=== PATIENT | female | born 2000 | race Caucasian/White ===

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

== ENCOUNTER 2020-07-03 23:50 | Inpatient (IN) | payer MEDICAID, SELFPAY ==
[2020-07-04] VITALS (18 sets, daily range): BP systolic 106–139; BP diastolic 67–113; PULSE 73–99; RESP 16–18; TEMP 36.6–36.9; O2SAT 96–100; BMI 29.9
[2020-07-04 01:13] LABS: Basophils % 0.2 %; Eosinophils % 0.2 %; Hematocrit 32.8 % (37.0-47.0); Hemoglobin 10.7 g/dL (11.5-15.3); Lymphocytes # 1.5 10^3/uL (1.5-6.5); Mean Corpuscular HGB Conc 32.6 g/dL (30.0-36.0); Mean Corpuscular Hemoglobin 28.5 pg (28.0-34.0); Mean Corpuscular Volume 87.2 fL (81-99); Mean Platelet Volume 10.1 fL (7.4-10.4); Monocytes # 0.6 10^3/uL (0.2-0.9); Monocytes % 3.3 %; Neutrophils # 14.69 10^3/uL (1.8-8.0); Neutrophils % 86.8 %; Nucleated Red Blood Cells % 0 %; Platelet Count 391 10^3/cmm (130-400); Red Blood Count 3.76 10^6/uL (4.1-5.3); Red Cell Distribution Width 13.8 % (12.1-15.1); White Blood Count 16.9 10^3/uL (4.5-13.0)
[2020-07-04 01:22] LABS: Rubella IgG 125.4 IU/mL (0.0-10.0)
[2020-07-04 01:23] LABS: Hepatitis B Surface Antigen Non-Reactive (Nonreactive); Hepatitis C Virus Antibody Non-Reactive (Nonreactive)
[2020-07-04 01:49] LABS: HIV 1 & 2 Antibody Non-Reactive (Non-Reactiv); HIV 1 & 2 Antigen Non-Reactive (Non-Reactiv); Rapid Plasma Reagin Syphilis Nonreactive (Nonreactive)
[2020-07-04] MEDS: benzocaine-menthol 78 gm Canister 1 SPRAY TOPICAL (02:20)
[2020-07-04] MEDS: HYDROcodone-acetaminophen 5-325 mg Tablet 1 TAB PO (02:20)
[2020-07-04 03:05] LABS: Urine Color Yellow (Yellow)
[2020-07-04 03:06] LABS: Add Urine Microscopic? YES; Amphetamines Screen Urine Positive (Negative); Barbiturates Screen Urine Negative (Negative); Benzodiazepines Screen Urine Negative (Negative); Bilirubin Urine Neg (Negative); Blood Urine Neg (Negative); Cocaine Screen Urine Negative (Negative); Glucose Urine UA Norm (Normal); Ketones Urine 3+ (Negative); Leukocyte Esterase Urine Negative (Negative); Nitrate Urine Positive (Negative); Opiate Screen Urine Negative (Negative); PCP Screen Urine Negative (Negative); Protein Urine Trace (Negative); Specific Gravity, Urine 1.015 (1.005-1.030); THC Screen Urine Positive (Negative); Urine Appearance Cloudy (CLEAR); Urobilinogen Urine 4 mg/dL (Negative)
[2020-07-04 03:07] LABS: Add Urine Culture? Yes; Amorphous Sediment Urine AMORPHOUS URATES /hpf; Bacteria Urine 3+ /hpf
--- NOTE | 2020-07-04 06:16 | PC.NURSE ---
Patient presented to Hospital by EMS infant delivered at home. Pt reports no care, older child is in state custody. Pt positive UDS for THC and Methamphetamines.
[2020-07-04] MEDS: ibuprofen 800 mg tablet PO (09:06)
[2020-07-04] MEDS: prenatal vitamin Capsule 1 CAP PO (09:07)
[2020-07-04] MEDS: docusate sodium 100 mg Capsule PO (09:07)
--- NOTE | 2020-07-04 10:10 | P.SS_ITS ---
Short Stay Summary Providers Date of Admit/Discharge: 07/03/20 (Date admission: 07/03/2020. Date discharge 07/04/2020) Attending Provider: Theo Arango MD Primary Care Provider: [facility] Chief Complaint: delivered outside of facility HPI History of Present Illness Patient is a 19-year-old female 2, now para 2-0-0-2 who found out she was in October. She has no idea of her LMP. She presented to the hospital by ambulance shortly before midnight following delivery of the baby at home. Patient states that she found out she was in October 2019. She did not receive any care. She stated that she started having contractions about 2 hours prior to having the baby. She reports delivering the baby at approximately 10:30 in the evening. They had called an ambulance because of going into labor. Paramedics arrived after delivery of the baby, but before delivery of the placenta. Placenta was delivered by the paramedics. She was then brought to the hospital. Reports she uses marijuana and methamphetamine. States the last use of methamphetamine was 06/30/2020. Denies IV use. Review of Systems Const: Reports: fatigue; Denies: fever(s) or chills ENMT: Denies: throat pain or nasal congestion Card: Reports: lightheadedness; Denies: chest pain or palpitations Resp: Reports: non-productive cough; Denies: dyspnea, productive cough or wheezing GI: Reports: diarrhea and constipation; Denies: abdominal pain, nausea or vomiting : Reports: urinary frequency; Denies: dysuria, vaginal bleeding or vaginal discharge Neuro: Denies: headache(s), dizziness or seizure-like activity Psych: Denies: anxiety or depression Endo: Reports: hot flashes Home Meds/Allergies Home Medications and Allergies Allergies Allergy/AdvReac Type Severity Reaction Status Date / Time diphenhydramine Allergy ADR-Itching Verified 11/10/19 13:27 [From Benadryl Allergy] PFSH Acute PFSH: Medical History (Updated 07/04/20 @ 10:37 by Theo Arango MD) Anxiety Cholelithiasis Depression Substance abuse admits to smoking marijuana and using methamphetamine Surgical History (Updated 07/04/20 @ 10:19 by Theo Arango MD) No pertinent past surgical history Family History Other Cancer Denies family history of Anesthesia complication Bleeding disorder Social History (Updated 07/04/20 @ 10:22 by Theo Arango MD) Smoking and tobacco status: current every day smoker cigarettes Packs smoked per day: 1.5 [ Other cigarette details: Started age 15 ] Alcohol intake: never Substance/Drug Use: current Substance/Drug use type: Marijuana and Methamphetamine Other substance/drug use details: Denies IV use Current gender identity: Female Female Reproductive History: Date of last menstrual period: 09/22/19 : 2 Vitals/I&O/Wt Last Vital Signs Temp 98.3 F 07/04/20 05:03 Pulse 84 07/04/20 06:03 Resp 16 07/04/20 06:03 BP 133/78 07/04/20 06:03 Pulse Ox 96 07/04/20 06:03 Weight last 48 hrs Weight 180 lb Physical Exam Const: COMMON NORMALS: no acute distress, average body habitus, alert and well nourished GENERAL APPEARANCE: well developed ORIENTATION/CONSCIOUSNESS: Yes oriented to person, Yes oriented to place and Yes oriented to time Resp: COMMON NORMALS: normal respiratory effort and clear to auscultation bilaterally AUSCULTATION: clear to auscultation bilaterally Cardio: COMMON NORMALS: regular rate, regular rhythm, No gallops present (Cardio), No murmurs present (Cardio) and No rub (Cardio) RATE: regular rate RHYTHM: regular rhythm GI: COMMON NORMALS: Soft to palpation, non-tender, No hepatosplenomegaly present and no masses (Except for firm, nontender, uterus) AUSCULTATION: Yes normoactive bowel sounds PALPATION: Yes Soft to palpation, Yes No hepatosplenomegaly present and No Hernia present : EXTERNAL FEMALE EXAM: No Hernia present Extremity: COMMON NORMALS: no calf tenderness NARRATIVE EXTREMITY EXAM: Trace lower extremity edema. Neuro: SENSORIUM/ORIENTATION: Yes alert, Yes oriented to person, Yes oriented to place and Yes oriented to time Psych: COMMON NORMALS: normal affect MOOD & AFFECT: Yes euthymic mood Skin: NARRATIVE SKIN EXAM: Pale Hospital Course Hospital Course On arrival to the hospital, by nurse evaluation, bleeding was well controlled. Uterus was firm and below the umbilicus. Patient reported baby had delivered at approximately 10:30 PM on 07/03/2020. Per the nurse, male baby, weighed 6 pounds 10 ounces (3010 g) with a length of 19-1/2 inches. Patient was admitted for care. labs were ordered. This morning, patient reports being tired. She is sleeping in the bed at this t allison and has to be woken up multiple times during the evaluation. She denies problems with lightheadedness or dizziness. She denied nausea or vomiting. Reports tolerating a regular diet. She denies shortness of breath or chest pains. She stated her bleeding had slowed. She denied problems with urination. She is wanting to go home today. Physical exam: See above Plan patient will be discharged to home after approximately 12 hours from admission. Urinalysis is suspicious for acute cystitis. Urine culture is still pending. She will be sent home on antibiotics. Baby is not being released today due to being positive for amphetamines. I discussed with her the importance of following up in the office for care. She was instructed to take vitamins. She was also instructed to take iron. Discharge instructions following delivery were discussed. SSS Data Data Completed and Pendin07/04/2020 at 00:40 Blood type: A+, antibody screen negative. CBC: WBC 16.9, hemoglobin 10.7, hematocrit 32.8, MCV 87.2, platelet 391,000 RPR: Nonreactive Hepatitis B surface antigen: Nonreactive. Hepatitis C antibody: Nonreactive HIV: Nonreactive Rubella: Immune (125) Urine drug screen: Positive amphetamine and THC Catheterized urine dip: Specific gravity 1.015, trace protein, negative glucose, 3+ ketones, negative blood, positive nitrates, leukocyte Estrace negative, RBC 9, WBC 10-15, squamous cells none. Pending at discharge Category Date Time Status Chlamydia Trachom atis ULISES Routine Lab 07/04/20 01:55 Received Neisseria Gonorrh oeae ULISES Routine Lab 07/04/20 01:55 Received Retype for Patiet s ABO/Rh Routine Lab 07/04/20 01:46 Ordered Urine Culture Rou tia Lab 07/04/20 01:55 Received Diagnoses at Discharge Discharge Diagnosis (1) No care in current : Status: Acute (2) complicated by maternal drug use, delivered, current hospital ization: Status: Acute (3) Acute cystitis: Status: Acute Qualifiers: Hematuria presence: without hematuria Qualified Code(s): N30.00 - Acute cystitis without hematuria (4) Anemia, : Status: Acute Discharge Plan Discharge Patient Disposition: Home Condition: Stable Prescriptions: New cephalexin 500 mg capsule 500 mg PO BID 7 Days Qty: 14 RF: 0 Discharge Orders: Discharge Order (Routine); Ordered 07/04/20 Ordered By: Theo Arango Referrals: Teho Arango MD [Physician] - ( exam in approximately 6 weeks) Discharge Diet: Regular Discharge Activity: Limit activity as instructed Patient Instructions: [facility] - [facility] Attestations Medical Necessity Statement*: Patient admitted due to delivery outside of hospital. She was to be released later this morning. Time Spent in Patient Care*: greater than 30 min Quality Metrics Clinical Quality Measures: During this hospital stay, did patient experience: None Coding Level of Care Code Acute Repairer Handtools for Chg Fwd Diagnoses No care in current O09.30 complicated by maternal drug use, delivered, current hospitalization O99.324; F19.90 Acute cystitis N30.00 Hematuria presence: without hematuria Anemia, O90.81
--- NOTE | 2020-07-04 16:14 | PC.RESP ---
Smoking Cessation information sent to patient.
== END 2020-07-04 14:52 | disposition home or self-care (01) | DRG 776 ==
PROVIDERS: Admitting Provider Obstetrics & Gynecology; Visit Provider Obstetrics & Gynecology
DX: O99.325 Drug use complicating the puerperium (principal); O86.22 Infection of bladder following delivery; F15.90 Other stimulant use, unspecified, uncomplicated; F12.90 Cannabis use, unspecified, uncomplicated; O99.345 Other mental disorders complicating the puerperium; F41.8 Other specified anxiety disorders; O99.63 Diseases of the digestive system complicating the puerperium; K80.20 Calculus of gallbladder without cholecystitis without obstruction; O99.335 Smoking (tobacco) complicating the puerperium; F17.210 Nicotine dependence, cigarettes, uncomplicated; O90.81 Anemia of the puerperium; D64.9 Anemia, unspecified
CPT/HCPCS: 12345; 51702; 80306; 81001; 85025; 86592; 86762; 86803; 86850; 86900; 87077; 87086; 87186; 87340; 87491; 87591; 87806

== ENCOUNTER → 2022-07-31 11:19 | Outpatient (BNVA) | payer MEDICAID, SELFPAY | PROVIDERS: Visit Provider Obstetrics & Gynecology | DX: O09.92 Supervision of high risk pregnancy, unspecified, second trimester (principal); O09.30 Supervision of pregnancy with insufficient antenatal care, unspecified trimester | CPT/HCPCS: 76805; 80307; 81025; 82950; 84315; 84443; 85025; 86592; 86705; 86706; 86762; 86803; 86850; 86900; 87077; 87086; 87184; 87340; 87806; 88175 ==

== ENCOUNTER → 2022-08-06 13:12 | Outpatient (BNVA) | payer MEDICAID, SELFPAY | PROVIDERS: Visit Provider Obstetrics & Gynecology | DX: Z34.90 Encounter for supervision of normal pregnancy, unspecified, unspecified trimester (principal) | CPT/HCPCS: 84315; 87086; 87491; 87591; 87661 ==

== ENCOUNTER → 2022-08-22 08:09 | Outpatient (BNVA) | payer MEDICAID, SELFPAY | PROVIDERS: Visit Provider Obstetrics & Gynecology | DX: O99.323 Drug use complicating pregnancy, third trimester (principal); F19.10 Other psychoactive substance abuse, uncomplicated | CPT/HCPCS: 84315; 87086 ==

== ENCOUNTER → 2022-09-03 09:10 | Outpatient (BNVA) | payer MEDICAID, SELFPAY | PROVIDERS: Visit Provider Obstetrics & Gynecology | DX: O99.323 Drug use complicating pregnancy, third trimester (principal); F19.10 Other psychoactive substance abuse, uncomplicated | CPT/HCPCS: 84315; 85025 ==

== ENCOUNTER → 2022-09-10 13:15 | Outpatient (BNVA) | payer MEDICAID, SELFPAY | PROVIDERS: Visit Provider Obstetrics & Gynecology | DX: O99.323 Drug use complicating pregnancy, third trimester (principal); F19.10 Other psychoactive substance abuse, uncomplicated | CPT/HCPCS: 84315; 87077; 87086; 87184 ==

== ENCOUNTER → 2022-09-17 08:40 | Outpatient (BNVA) | payer MEDICAID, SELFPAY | PROVIDERS: Visit Provider Obstetrics & Gynecology | DX: O99.323 Drug use complicating pregnancy, third trimester (principal); F19.10 Other psychoactive substance abuse, uncomplicated | CPT/HCPCS: 84315; 87077; 87081; 87086; 87184 ==

== ENCOUNTER → 2022-09-24 14:17 | Outpatient (BNVA) | payer MEDICAID, SELFPAY | PROVIDERS: Visit Provider Obstetrics & Gynecology | DX: O99.323 Drug use complicating pregnancy, third trimester (principal); F19.10 Other psychoactive substance abuse, uncomplicated; O98.819 Other maternal infectious and parasitic diseases complicating pregnancy, unspecified trimester; A74.9 Chlamydial infection, unspecified; O23.599 Infection of other part of genital tract in pregnancy, unspecified trimester; A59.01 Trichomonal vulvovaginitis; O35.BXX0 Maternal care for other (suspected) fetal abnormality and damage, fetal cardiac anomalies, not applicable or unspecified; O35.EXX0 Maternal care for other (suspected) fetal abnormality and damage, fetal genitourinary anomalies, not applicable or unspecified | CPT/HCPCS: 84315; 87077; 87086; 87184 ==